=== PATIENT | male | born 1990 | race Caucasian/White ===

== ENCOUNTER 2018-01-11 19:23 | Inpatient (IN) | payer OTHER ==
[~2018-01-11] VITALS: Ht 180.3 cm; Wt 63.5 kg
[2018-01-11] MEDS ORDERED: MAG HYDROX/AL HYDROX/SIMETH 30 ML LIQUID UDC PO PRN (21:00)
[2018-01-11] MEDS ORDERED: LORAZEPAM 1 MG TABLET PO PRN (21:00)
[2018-01-11] MEDS ORDERED: DICYCLOMINE HCL 20 MG TABLET PO PRN (21:00)
[2018-01-11] MEDS ORDERED: MIRALAX 17 GM POWD.PACK PO PRN (21:00)
[2018-01-11] MEDS ORDERED: IBUPROFEN 600 MG TABLET PO PRN (21:00)
[2018-01-11] MEDS ORDERED: ONDANSETRON ODT 4 MG TAB.RAPDIS SL PRN (21:00)
[2018-01-11] MEDS ORDERED: LOPERAMIDE HCL 2 MG CAPSULE PO PRN ×2 (21:00)
[2018-01-11] MEDS ORDERED: CLONIDINE HCL 0.1 MG TABLET PO PRN (21:00)
[2018-01-11] MEDS ORDERED: MAGNESIUM HYDROXIDE 30 ML LIQUID UDC PO PRN (21:00)
[2018-01-11] MEDS ORDERED: ONDANSETRON 4 MG/2 ML VIAL IM PRN (21:00)
[2018-01-11] MEDS ORDERED: diphenhydrAMINE 50 MG CAPSULE PO PRN (21:00)
[2018-01-11] MEDS ORDERED: BUPRENORPHINE HCL 2 MG TAB.SUBL SL PRN (21:00)
[2018-01-11] MEDS ORDERED: HYDROXYZINE PAMOATE 25 MG CAPSULE PO PRN (21:00)
[2018-01-11] MEDS ORDERED: METHOCARBAMOL 750 MG TABLET PO PRN (21:00)
[2018-01-11] MEDS ORDERED: ACETAMINOPHEN 325 MG TABLET PO PRN (21:00)
--- NOTE | 2018-01-11 21:30 | NUR ---
PRE-ADMISSION NOTE Patient is a 27-year-old male, came on 01/11/18 to [facility] for medically supervised withdrawal from heroin.Pt. is NKA. FULL CODE, on Reg.Diet. Patient has a PCP/Psychiatrist Dr.Arugen Armas in [place], [place]. Pt. was in [facility] 12/28/2017-01/11/2018 on 5150 after OD and suicidal attempt. Pt. denies SI/HI at this time, denies history of seizures. MRSA test is sent to the lab.Longest sober period was 80 days in 2013.Patient is 5'11", 140lbs. Patient is alert and oriented x4, anxious and complaining of mild headache, increased level of anxiety, difficulty falling and staying asleep. Patient reports that typical withdrawal symptoms include: "anxiety, shaking, body pain, nausea, vomiting, diarrhea." Upon assessment, patient's respirations are even and unlabored, lung sound clear bilaterally upon auscultation. Patient abdomen is soft and non-tender. Patient reports that he had a " small bowel movement" earlier today Patient is ambulatory with a steady gait. Patient's initial vital signs as follows: BP 120/70, HR=93/min, O2 sat 98% on room air, RR=16/min. Initial COWS=9. Pt. will be admitted to the unit.
--- NOTE | 2018-01-11 23:00 | NUR ---
PRN VISTARIL, BENADRYL, CATAPRES Pt. complains of difficulty falling asleep, insomnia, increased level of anxiety. PRN VISTARIL, DESYREL, CATAPRES given as ordered. Safety measures in place : bed on lowest position with side rails x2 up for safety, call light within reach. Will continue to monitor closely and offer help.
--- NOTE | 2018-01-11 23:00 | NUR ---
ADMISSION NOTE Patient is a 27-year-old male, admitted on 01/11/18 to [facility] for medically supervised withdrawal from heroin.Pt. is NKA. FULL CODE, on Reg.Diet. Patient has a PCP/Psychiatrist Dr.Arugen Armas in [place], [place]. Pt. was in [facility] 12/28/2017-01/11/2018 on 5150 after OD and suicidal attempt. Pt. denies SI/HI at this time, denies history of seizures. MRSA test is sent to the lab.Longest sober period was 80 days in 2013. Patient's skin and body check was completed, skin noted to be dry, warm and intact. Patient is 5'11", 140lbs. Patient is alert and oriented x4, anxious and complaining of mild headache, increased level of anxiety, difficulty falling and staying asleep. Patient reports that typical withdrawal symptoms include: "anxiety, shaking, body pain, nausea, vomiting, diarrhea." Upon assessment, patient's respirations are even and unlabored, lung sound clear bilaterally upon auscultation. Patient abdomen is soft and non-tender. Patient reports that he had a " small bowel movement" earlier today Patient is ambulatory with a steady gait. Patient's initial vital signs as follows: BP 120/70, HR=93/min, O2 sat 98% on room air, RR=16/min. Initial COWS=9. Pt oriented to his room and unit. Safety measures in place, side rails up x 2 . Will continue to monitor closely and offer help. Substance abuse history: 1. Heroin (nasal insufflation) daily, 2gm QD for the last 6 months. Last use was 01/11/18, uses s.12/2016 Occasionally Meth 0.5gm snorting x3/week Occasionally ETOH/BEER 1,000ml PO x3/week Rehab history: x6 Detox. Past Medical History : Depression, left meniscus OP in 2013, Gastritis. [facility], suicidal attempt. Family History: None.
[2018-01-11 23:28] LABS: BASOPHILS % (AUTO) 0.3 % (0.0-2.0); EOSINOPHILS # (AUTO) 0.1 K/uL (0.0-0.7); EOSINOPHILS % (AUTO) 1.2 % (0.0-7.0); HEMATOCRIT 43.7 % (36.7-47.1); LYMPHOCYTES # (AUTO) 2.7 K/uL (20.0-40.0); LYMPHOCYTES % (AUTO) 27.9 % (20.5-51.5); MEAN CORPUSCULAR HEMOGLOBIN 30.5 uug (23.8-33.4); MEAN CORPUSCULAR HGB CONC 34 g/dL (32.5-36.3); MEAN CORPUSCULAR VOLUME 88.6 fL (73.0-96.2); MONOCYTES # (AUTO) 0.8 K/uL (2.0-10.0); MONOCYTES % (AUTO) 8.2 % (0.0-11.0); NEUTROPHILS # (AUTO) 6.1 K/uL (1.8-8.9); NEUTROPHILS % (AUTO) 62.4 % (38.5-71.5); PLATELET COUNT (AUTO) 284 K/uL (152-348); RED BLOOD CELL COUNT(AUTO) 4.93 MIL/uL (4.06-5.63); WHITE BLOOD COUNT (AUTO) 9.8 K/uL (3.6-10.2)
[2018-01-11 23:34] LABS: ALANINE AMINOTRANSFERASE 21 U/L (16-63); ALKALINE PHOSPHATASE 43 U/L (50-136); ASPARTATE AMINOTRANSFERASE 14 U/L (15-37); BILIRUBIN,TOTAL 0.3 mg/dL (0.2-1.0); CARBON DIOXIDE 25 mmol/L (21-32); CHLORIDE 104 mmol/L (98-107); CREATININE 1.1 mg/dL (0.6-1.3); GLUCOSE 107 mg/dL (74-106); MAGNESIUM 1.9 mg/dL (1.8-2.4); POTASSIUM 3.9 mmol/L (3.5-5.1); TOTAL PROTEIN, SERUM 7.7 g/dL (6.4-8.2); UREA NITROGEN, BLOOD 20 mg/dL (7-18)
[2018-01-11 23:42] LABS: ETHANOL < 3 MG/DL (0-0)
--- NOTE | 2018-01-11 23:59 | NUR ---
RE-ASSESSMENT HILL DOBSON CATAPRES Pt. is sleeping, RR=16, unlabored and even . Safety measures in place : bed on lowest position with side rails x2 up for safety, call light within reach. Will continue to monitor closely and offer help.
[2018-01-12] VITALS: BP 120/70
[2018-01-12 02:05] LABS: *AMPHETAMINE, URINE POSITIVE (NEGATIVE); *BARBITURATE, URINE NEGATIVE (NEGATIVE); *CANNABINOID, URINE NEGATIVE (NEGATIVE); *COCCAINE, URINE NEGATIVE (NEGATIVE); *OPIATE, URINE POSITIVE (NEGATIVE); *PHENCYCLIDINE SCREEN,URINE NEGATIVE (NEGATIVE)
--- NOTE | 2018-01-12 06:50 | NUR ---
END OF SHIFT NOTE : Patient is a 27-year-old male, admitted on 01/11/18 to [facility] for medically supervised withdrawal from heroin.Pt. is NKA. FULL CODE, on Reg.Diet. Pt. was in [facility] 12/28/2017-01/11/2018 on 5150 after OD and suicidal attempt. PRN BENADRYL, CATAPRES, VISTARIL given during a night worker. Pt. provided UDS late in the evening, blood is drawn for lab. COWS taken when pt. was awake, last COWS=9 at 04:00 . Intake= 591ml, voided x1, slept=8 hours . Safety measures in place : bed on lowest position with side rails x2 up for safety, all light within reach. Will continue to monitor closely and offer help.
[2018-01-12 08:00] VITALS: BP 120/60
--- NOTE | 2018-01-12 08:00 | NUR ---
START OF SHIFT: RECEIVED PT A/O X 4 . HE C/O ANXIETY AND RESTLESSNESS. HE STATES HE IS EATING SLEEPING WELL. HE WANTS TO DISCUSS WITH MD TAKING SUBUTEX.PPD PLANTED TO LFA COWS 6. HE STATES HE DOES NOT WANT ANY MEDICATIONS BUT WOULD LIKE SUBUTEX. MD MADE AWARE AND MD WILL ASSESS PT. ENCOURAGED INCREASED FLUIDS TO ASSIST IN FACILITATING DETOX PROCESS. WILL CONTINUE TO MONITOR AND PROVIDE SAFE AND SUPPORTIVE ENVIRONMENT.
[2018-01-12] MEDS ORDERED: TUBERCULIN,PURIF.PROT.DERIV. 5 TU/0.1 ML TEST ID ONE (09:00)
[2018-01-12] MEDS ORDERED: QUETIAPINE FUMARATE 100 MG TABLET PO PRN (09:15)
[2018-01-12] MEDS ORDERED: BUPRENORPHINE HCL 2 MG TAB.SUBL SL ONE (10:45)
[2018-01-12] MEDS ORDERED: GABAPENTIN 300 MG CAPSULE PO ONE (10:45)
--- NOTE | 2018-01-12 11:10 | NUR ---
ONE TIME DOSE OF SUBUTEX 2 MG SL GIVEN PER MD. COWS 13. WILL MONITOR EFFECTIVENESS.
--- NOTE | 2018-01-12 11:40 | NUR ---
PT STATES SUBUTEX WAS EFFECTIVE IN MANAGING S/S OF W/D. COWS 5. WILL CONTINUE TO MONITOR.
[2018-01-12 12:00] VITALS: BP 111/54
[2018-01-12] MEDS ORDERED: CLON0.1T14 PO (13:09)
[2018-01-12] MEDS ORDERED: GABA-534 PO (13:10)
[2018-01-12] MEDS ORDERED: METH-406 PO (13:10)
[2018-01-12] MEDS ORDERED: DICY20TA28 PO (13:10)
[2018-01-12] MEDS ORDERED: QUET100T PO (13:10)
[2018-01-12] MEDS ORDERED: HYDR-3895 PO (13:10)
[2018-01-12] MEDS ORDERED: IBUP-1955 PO (13:10)
[2018-01-12 16:00] VITALS: BP 116/61
--- NOTE | 2018-01-12 18:42 | NUR ---
END OF SHIFT: PT ISOLATED IN ROOM MOST OF SHIFT WITH LITTLE INTERACTION WITH PEERS. HE WAS GIVEN ONE TIME DOSE OF SUBUTEX 2 MG SL PER MD AND IT WAS EFFECTIVE FOR S/S OF W/D WHICH INCLUDED BODY ACHES,ANXIETY,SWEATS AND RESTLESSNESS. LAST COWS 5. PPD PLANTED TO LFA. DISCHARGE PLANNING IN PROGRESS FOR 01/13 TO [facility]. WILL PASS SHIFT REPORT TO ONCOMING NIGHT NURSE.
--- NOTE | 2018-01-12 19:30 | NUR ---
START OF SHIFT NOTE : Patient is a 27-year-old male, admitted on 01/11/18 to [facility] for medically supervised withdrawal from heroin.Pt. is NKA. FULL CODE, on Reg.Diet. Pt. was in [facility] 12/28/2017-01/11/2018 on 5150 after OD and suicidal attempt. No PRN given during a day shift. Pt. will be D/C tomorrow in A.M. PPD should be read on 01/14/2018, will be noticed in D/C papers. Last COWS=5 at 16:00, no PRNs given during a day shift. Pt. is isolative, anxious, no acute signs of withdrawal noted, he complains of difficulty falling and staying asleep, increased level of anxiety. Encouraged to attend group and participate in activities due to self isolation. Educated patient regarding the importance of compliance to treatment and medication regime, patient verbalized understanding. Safety measures in place : bed on lowest position with side rails x2 up for safety, all light within reach. Will continue to monitor closely and offer help.
[2018-01-12 20:00] VITALS: BP 108/60
[2018-01-12] MEDS ORDERED: GABAPENTIN 300 MG CAPSULE PO SCH (21:00)
--- NOTE | 2018-01-12 21:00 | NUR ---
PRN VISTARIL, SEROQUEL Pt. complains of difficulty falling asleep, insomnia, increased level of anxiety. PRN VISTARIL, SEROQUEL given as ordered. Safety measures in place : bed on lowest position with side rails x2 up for safety, call light within reach. Will continue to monitor closely and offer help.
--- NOTE | 2018-01-12 22:00 | NUR ---
RE-ASSESSMENT EMELY DOBSON Pt. is sleeping, RR=16, unlabored and even . Safety measures in place : bed on lowest position with side rails x2 up for safety, call light within reach. Will continue to monitor closely and offer help.
[2018-01-13 04:00] VITALS: BP 130/65
--- NOTE | 2018-01-13 07:30 | NUR ---
DISCHARGE NOTE : Patient is a 27-year-old male, admitted on 01/11/18 to [facility] for medically supervised withdrawal from heroin.Pt. is NKA. FULL CODE, on Reg.Diet. PRN VISTARIL, SEROQUEL given during a mold shifter. COWS taken when pt. was awake, last COWS=3 at 04:00 . Pt. is in stable condition, vitals WNL, pt. is alert and oriented x4. Skin intact, pt. denies any SI/HI at this time. All discharge paperwork completed, dated and signed. Pt. educated about discharge instructions, what to do after discharge., when to contact MD as well as the s/s reportable to MD. Pt. verbalized understanding. SN=428/65, HR=60/min, Temp=98.3, RR=16, SpO2=98%. Intake= 591ml, voided x1, slept=8 hours . Pt. was discharged from [facility] on 01/13/2018 at 07:30. Pt. left the building with all of his belongings and prescriptions, pt. didnt bring any medications with him to the unit. MD has been contacted and notified of Pt.s discharge.
[2018-01-13 12:07] LABS: HEPATITIS B SURFACE AG Negative (Negative)
== END 2018-01-13 07:42 | disposition home or self-care (01) | DRG 897 ==
LOC: SRC 20:32
PROVIDERS: ADMIT Internal Medicine; ATTEND Internal Medicine
PROC: HZ2ZZZZ Detoxification Services for Substance Abuse Treatment (ICD-10-PCS; principal; 2018-01-11)
DX: F11.23 Opioid dependence with withdrawal (principal); F39 Unspecified mood [affective] disorder; E86.0 Dehydration; F32.9 Major depressive disorder, single episode, unspecified; F15.10 Other stimulant abuse, uncomplicated; G47.00 Insomnia, unspecified; R73.9 Hyperglycemia, unspecified; Z91.89 Other specified personal risk factors, not elsewhere classified
CPT/HCPCS: 36415; 80307; 80324; 80361; 83735; 85025; 86580; 86592; 86705; 86803; 87340; 87806; G0480; Q0163